=== PATIENT | female | born 1950 | race Caucasian/White ===

== ENCOUNTER 2016-07-24 10:33 | Emergency (ER) | payer OTHER ==
[~2016-07-24 10:33] MED LIST: ASPIRIN81 M4 PO; FENOFIBRATE48 M1 PO; FUROSEMIDE40 M1 PO; KEFLEX500 MG PO; LISINOPRIL40 M1 PO; LOVASTATIN40 M1 PO; LYRICA50 M1 PO; METFORMIN HCL1000 M1 PO; SERTRALINE HCL50 MG PO
[2016-07-24 10:43] VITALS: BP 142/77
--- NOTE | 2016-07-24 11:51 | ED UPPER/LOWER EXTREMITY COMPL ---
History of Present Illness General Chief Complaint: Lower Extremity Problems Stated Complaint: RT LEG BLD BLISTER STATED BY PT Source: patient, old records Exam Limitations: no limitations Vital Signs & Intake/Output Vital Signs & Intake/Output Vital Signs Date Time Temp Pulse Resp B/P B/P Pulse O2 O2 Flow FiO2 Mean Ox Delivery Rate 07/24 1130 Room Air 07/24 1043 97.8 89 16 142/77 96 Room Air Allergies Coded Allergies: Penicillins (HIVES 12/02/15) vancomycin (FEVER 12/02/15) Reconcile Medications Aspirin (Aspirin*) 81 MG TAB.CHEW 1 TAB PO DAILY HEART HEALTH (Reported) Cephalexin (Keflex) 500 MG CAP 1 TAB PO 4 TIMES/DAY TOE INFECTION Fenofibrate Nanocrystallized (Fenofibrate) 48 MG TABLET 1 TAB PO DAILY CHOLESTEROL (Reported) Furosemide 40 MG TABLET 1 TAB PO EOD WATER PILL (Reported) Lisinopril 40 MG TABLET 1 TAB PO DAILY HEART (Reported) Lovastatin 40 MG TABLET 1 TAB PO DAILY CHOLESTEROL (Reported) with food Metformin HCl 1,000 MG TABLET 1 TAB PO BID DIABETES (Reported) Pregabalin (Lyrica) 50 MG CAPSULE 1 CAP PO TID PAIN (Reported) Sertraline HCl 50 MG TABLET 1 TAB PO DAILY MENTAL HEALTH (Reported) Triage Note: PT TO ED, STATES SHE HAD A VASCULAR PROCEDURE TO HER RIGHT LEG X1 MONTH AGO BY DR ALCAZAR. STATES AREA STARTED TO DOUBLE IN SIZE PAST X2 DAYS. Triage Nurses Notes Reviewed? yes HPI: 65F PMH HTN, RECENT VARICOSE VEIN ABLATION 1 MONTH AGO PRESENTING WITH RIGHT LATERAL MARK ECCHYMOSIS. PATIENT HAS WHAT APPEARS TO BE A CHRONIC ULCER WITH COAGULATED BLOOD APPROXIMATELY 2CM WIDE. THERE IS NO TENDERNESS, PAIN, DISCHARGE. DENIES FEVER, CHILLS, LEG SWELLING, CHEST PAIN, SOB. Past History Travel History Traveled to [place] past [place] day No Medical History Any Pertinent Medical History? see below for history Neurological: NEUROPATHY EENT: SLEEP APNEA Cardiovascular: hypertension Musculoskeletal: BTK AMPUTATION L Endocrine: diabetes Surgical History Surgical History: bka left Psychosocial History What is your primary language Albanian Tobacco Use: Never used Family History Hx Contributory? No Review of Systems Review of Systems Constitutional: Reports: no symptoms. EENTM: Reports: no symptoms. Respiratory: Reports: no symptoms. Cardiovascular: Reports: no symptoms. Gastrointestinal/Abdominal: Reports: no symptoms. Genitourinary: Reports: no symptoms. Musculoskeletal: Reports: no symptoms. Skin: Reports: see HPI. Neurological/Psychological: Reports: no symptoms. Hematologic/Endocrine: Reports: no symptoms. Immunological: Reports: no symptoms. All Other Systems: Reviewed and Negative Physical Exam Physical Exam General Appearance: well developed/nourished, no apparent distress, alert Head: atraumatic, normal appearance Ears, Nose, Throat: normal pharynx, normal ENT inspection Neck: normal inspection, supple Cardiovascular/Respiratory: normal breath sounds, normal peripheral pulses, regular rate/rhythm Back: normal inspection, normal range of motion Leg Right: ecchymosis Skin: normal color, warm/dry, ecchymosis Progress Differential Diagnosis: arterial insufficiency, cellulitis, CHF, compartment syndrome, contusion, dislocation, DVT, fracture, gout, septic arthritis, sprain, tendon injury Plan of Care: Microbiology 07/24 1209 BLOOD: Blood Culture - CAN Cancelled: Cancelled via OE: Per MD Decision PATIENT WITH STABLE ULCER WITH NO ACTIVE BLEEDING, PAIN, OR DISCHARGE. CAN FOLLOW UP WITH VASCULAR SURGEON AND WOUND CARE THIS WEEK. NO IMAGING NECESSARY. PATIENT IS LOW PROBABILITY FOR VTE, WELLS SCORE 0. NO ACTIVE INFECTION NOTED. WILL BE DISCHARGED HOME. (HERMANN PIMENTEL,MAGI) Departure Departure Time of Disposition: 1149 Disposition: HOME OR SELF CARE Condition: Stable Clinical Impression Primary Impression: Wound of right lower extremity Referrals: RYANNE PIMENTEL,BIJAL Cotton (PCP/Family) Additional Instructions: FOLLOW UP WITH DR ALCAZAR SCHEDULED ON Tuesday07/29/16 Departure Forms: Customer Survey General Discharge Information
[2016-07-25] MEDS ORDERED: BACITRACIN28.4 GM TOP ×2 (14:05→14:17)
[2016-07-25] MEDS ORDERED: HUMALOG100 UNIT/2 (14:14)
[2016-07-25] MEDS ORDERED: SODIUM CHLORIDE50 M1 TP (14:17)
== END 2016-07-24 11:50 ==
LOC: ERH 10:33
DX: S81.801A Unspecified open wound, right lower leg, initial encounter (principal)
CPT/HCPCS: 87040

== ENCOUNTER 2017-05-15 23:31 | Emergency (ER) | payer OTHER, MEDICARE ==
[~2017-05-15] VITALS: Ht 152.4 cm; Wt 124.7 kg
[~2017-05-15 23:31] MED LIST changes: +BACITRACIN28.4 GM TOP; +HUMALOG100 UNIT/2; +SODIUM CHLORIDE50 M1 TP
--- NOTE | 2017-05-15 23:41 | ED GI/GU/ABDOMINAL COMPLAINT ---
History of Present Illness General Chief Complaint: Female Urogenital Problems Stated Complaint: FEMALE PROBLEMS PER PT Source: patient Exam Limitations: no limitations Vital Signs & Intake/Output Vital Signs & Intake/Output Vital Signs Date Time Temp Pulse Resp B/P B/P Pulse O2 O2 Flow FiO2 Mean Ox Delivery Rate 05/16 0139 97.9 78 18 147/68 97 Room Air 05/15 2338 97.9 87 18 162/78 97 Room Air ED Intake and Output 05/16 0000 05/15 1200 Intake Total Output Total Balance Patient 275 lb Weight Weight Reported by Patient Measurement Method Allergies Coded Allergies: Penicillins (HIVES 12/02/15) vancomycin (FEVER 12/02/15) Reconcile Medications Aspirin (Aspirin*) 81 MG TAB.CHEW 1 TAB PO DAILY HEART HEALTH (Reported) Bacitracin 500 UNIT/GRAM OINT...G. 1 FEMI TOP BID SKIN WOUND apply to affected area(s). Fenofibrate Nanocrystallized (Fenofibrate) 48 MG TABLET 1 TAB PO DAILY CHOLESTEROL (Reported) Furosemide 40 MG TABLET 1 TAB PO EOD WATER PILL (Reported) Insulin Lispro (Humalog) 100 UNIT/ML VIAL (Unknown Dose) DIABETES (Reported) Lisinopril 40 MG TABLET 1 TAB PO DAILY HEART (Reported) Lovastatin 40 MG TABLET 1 TAB PO DAILY CHOLESTEROL (Reported) with food Metformin HCl 1,000 MG TABLET 1 TAB PO BID DIABETES (Reported) Normal Saline (Sodium Chloride) 0.9 % IV.SOLN 1,000 ML TP BID WOUND CLEANING Pregabalin (Lyrica) 50 MG CAPSULE 1 CAP PO TID PAIN (Reported) Sertraline HCl 50 MG TABLET 1 TAB PO DAILY MENTAL HEALTH (Reported) Sulfamethoxazole/Trimethoprim (Bactrim Ds Tablet) 800 MG-160 MG TABLET 1 TAB PO BID uti Triage Note: PT TO ER C/C RLQ PAIN X 4 DAYS. SAW PCP ON TUESDAY HAD NEGATIVE UA. PT W/ HX OF TYPE 1 DM. STATES GLUCOSE HAS BEEN ELEVATED. DENIES N/V/D. STATES PAIN IS PRESSURE. Triage Nurses Notes Reviewed? yes ? n Is pt currently ? No Onset: Gradual Duration: day(s): Timing: recent history Quality/Severity: sharpness Location: right lower quadrant Radiation: no radiation Activities at Onset: none Modifying Factors: Worsens With: palpation. Associated Symptoms: abdominal pain, dysuria HPI: 66 yo woman h/o diabetes, on insulin, presents with right lower quadrant and suprapubic abdominal discomfort for the past 4-5 days. She notes dysuria, went to a clinic, had a negative u/a. She notes no fever, chills, nausea, vomiting, diarrhea, vaginal discharge. She is otherwise well. Past History Travel History Traveled to [place] past 21 day No Medical History Any Pertinent Medical History? see below for history Neurological: NEUROPATHY EENT: SLEEP APNEA Cardiovascular: hypertension Musculoskeletal: BTK AMPUTATION L Endocrine: diabetes Surgical History Surgical History: bka left Psychosocial History What is your primary language Yi Tobacco Use: Never used Family History Hx Contributory? No Review of Systems Review of Systems Constitutional: Reports: no symptoms. EENTM: Reports: no symptoms. Respiratory: Reports: no symptoms. Cardiovascular: Reports: no symptoms. GI: Reports: no symptoms. Genitourinary: Reports: no symptoms. Musculoskeletal: Reports: no symptoms. Skin: Reports: no symptoms. Neurological/Psychological: Reports: no symptoms. Hematologic/Endocrine: Reports: no symptoms. Immunologic/Allergic: Reports: no symptoms. All Other Systems: Reviewed and Negative Physical Exam Physical Exam General Appearance: well developed/nourished, mild distress Head: atraumatic, normal appearance Eyes: Bilateral: normal appearance. Ears, Nose, Throat, Mouth: hearing grossly normal, moist mucous membrane Neck: normal inspection, supple, full range of motion Respiratory: normal breath sounds, chest non-tender, no respiratory distress, quiet respiration, lungs clear Cardiovascular: regular rate/rhythm Gastrointestinal: normal bowel sounds, soft, mild rlq tenderness and suprapubic tenderness to palpation. Back: normal inspection Extremities: normal range of motion Neurologic/Psych: no motor/sensory deficits, awake, alert, oriented x 3 Skin: intact, normal color, warm/dry Core Measures ACS in differential dx? No Sepsis Present: No Sepsis Focused Exam Completed? No Progress Differential Diagnosis: UTI/pyelo, appy vs other. Plan of Care: Orders Procedure Date/time Status URINALYSIS 05/15 2340 Complete LIPASE 05/15 234 Complete HEPATIC FUNCTION PANEL 05/15 2340 Complete CBC WITHOUT DIFFERENTIAL 05/15 2340 Complete BASIC METABOLIC PANEL 05/15 234 Complete AMYLASE 05/15 234 Complete EKG 05/15 2340 Active Current Medications Sig/Yuriy Start time Last Medication Dose Stop Time Status Admin Ketorolac 60 MG ONCE ONE 05/16 44 CAN Tromethamine 05/16 45 (Toradol) Laboratory Tests 05/16/17 0034: Anion Gap 12, Estimated GFR > 60, BUN/Creatinine Ratio 36.7 H, Glucose 188 H, Calcium 9.9, Total Bilirubin 0.5, Direct Bilirubin 0.4, AST 13 L, ALT 24, Alkaline Phosphatase 88, Total Protein 7.2, Albumin 4.1, Amylase < 30 L, Lipase 104 05/16/17 0022: Urinalysis LIGHT H, Urine Color YEL, Urine Clarity HAZY H, Urine pH 6.0, Ur Specific [place] >= 1.030, Urine Protein 100 H, Urine Ketones NEG, Urine Nitrite NEG, Urine Bilirubin NEG, Urine Urobilinogen 0.2, Ur Leukocyte Esterase NEG, Ur Microscopic SEDIMENT EXAMINED, Urine RBC 15-25 H, Urine WBC 1-3 H, Ur Epithelial Cells MOD H, Urine Bacteria FEW H, Urine Mucus FEW, Urine Hemoglobin MOD H, Urine Glucose NEG 05/16/17 0002: CBC w Diff NO MAN DIFF REQ, RBC 4.47, MCV 84.7, MCH 28.4, MCHC 33.5, RDW 13.4, MPV 9.2, Gran % 75.5 H, Lymphocytes % 18.6 L, Monocytes % 4.3, Eosinophils % 1.5, Basophils % 0.1, Absolute Granulocytes 8.7 H, Absolute Lymphocytes 2.1, Absolute Monocytes 0.5, Absolute Eosinophils 0.2, Absolute Basophils 0 Diagnostic Imaging: Viewed by Me: CT Scan. Discussed w/RAD: CT Scan. Radiology Impression: PATIENT: ELIZABETH ETIENNE PRESENT AGE: 66 PATIENT ACCOUNT NO: [id number] : 51 LOCATION: [facility] ORDERING PHYSICIAN: Domenico Austin MD SERVICE DATE: 05/16/17 EXAM TYPE: CAT - CT ABD & PELVIS W/O IV CONTRAS EXAMINATION: CT ABDOMEN AND PELVIS WITHOUT CONTRAST CLINICAL INFORMATION: Right lower quadrant pain COMPARISON: None TECHNIQUE: Multidetector volumetric imaging was performed from the superior aspect of the liver through the pubic symphysis. Sagittal and coronal reformatted images were obtained on the technologist's workstation. DLP: 1379 mGy-cm FINDINGS: LUNG BASES: The visualized lung bases are unremarkable. LIVER, GALLBLADDER, AND BILIARY TREE: The liver is normal in size, shape, and attenuation. No focal hepatic lesion or biliary ductal dilatation is present. There is a peripherally calcified 2.4 cm stone in the gallbladder fundus. No gallbladder wall thickening or pericholecystic fluid. PANCREAS: Unremarkable. SPLEEN: Unremarkable. ADRENAL GLANDS: Unremarkable. KIDNEYS AND URETERS: The kidneys are normal in size, shape, and attenuation. There is mild asymmetric right perinephric stranding. Mild prominence of the right ureter without hydronephrosis. No renal or ureteral calculi are seen. BLADDER: Decompressed. No bladder calculi. GASTROINTESTINAL TRACT: The stomach is unremarkable. The small bowel is normal in caliber. No obstruction. Normal appendix. No colonic wall thickening or inflammatory change. Mild colonic stool burden. No free air or free fluid. ABDOMINAL WALL: No significant hernia is appreciated. LYMPH NODES: Normal. VASCULAR: Normal caliber aorta with mild atherosclerotic calcifications. PELVIC VISCERA: Uterus is not seen. No adnexal mass. Mild stranding noted in the pelvis. OSSEOUS STRUCTURES: No acute or suspicious osseous abnormality. Mild degenerative changes of both hips. Cortical thickening with increased trabeculation noted at the right hemipelvis. Degenerative changes of the spine. IMPRESSION: 1. Asymmetric right perinephric stranding with mild prominence of the right ureter. No significant hydronephrosis at this time. No renal, ureteral , or bladder calculi are seen. The appearance could be associated with a recently passed stone, although infectious process not excluded. 2. Cholelithiasis. 3. Findings suggestive of Paget's disease in the right pelvis. DICTATED BY: Ismael Schafer MD DATE/TIME DICTATED:05/16/1737 TEACHER OF THE DEAF/HARD OF HEARING:LAVONNE DATE/TIME TRANSCRIBED:05/16/1737 CONFIDENTIAL, DO NOT COPY WITHOUT APPROPRIATE AUTHORIZATION. <Electronically signed in Other Vendor System> SIGNED BY: Ismael Schafer MD 05/16/1747 Initial ED EKG: sinus, poor r wave progression, no acute changes. Departure Departure Disposition: HOME OR SELF CARE Condition: Stable Clinical Impression Primary Impression: Abdominal pain Secondary Impressions: Renal colic on right side Referrals: Sallie PIMENTEL,Connie Cotton (PCP/Family) Departure Forms: Customer Survey General Discharge Information Prescriptions: Current Visit Scripts Sulfamethoxazole/Trimethoprim (Bactrim Ds Tablet) 1 TAB PO BID #20 TAB Comments symptoms and exam suggest having passed a kidney stone... pt feeling better in ED.... perinephric stranding concerning for uti/pyelo... will treat with abx... pt feels well and would like to go home...pt safe for discharge and will follow up with pmd and urology.
[2017-05-16 00:12] LABS: ABSOLUTE BASOPHIL COUNT 0 /CUMM (0.0-0.2); ABSOLUTE EOSINOPHIL COUNT 0.2 /CUMM (0.0-0.7); ABSOLUTE GRANULOCYTE CT 8.7 /CUMM (1.4-6.5); ABSOLUTE LYMPH COUNT 2.1 /CUMM (1.2-3.4); ABSOLUTE MONOCYTE COUNT 0.5 /CUMM (0.10-0.60); BASOPHIL % 0.1 % (0.0-2.0); EOSINOPHIL % 1.5 % (0-5); GRANULOCYTE % 75.5 % (42.2-75.2); HEMATOCRIT 37.8 % (37-47); MEAN CORPUSCULAR HGB 28.4 PG (27.0-31.0); MEAN CORPUSCULAR HGB CONC 33.5 G/DL (33.0-37.0); MEAN CORPUSCULAR VOLUME 84.7 FL (81.0-99.0); MEAN PLATELET VOLUME 9.2 FL (7.4-10.4); PLATELET COUNT 224 /CUMM (130-400); RBC DISTRIBUTION WIDTH 13.4 % (11.5-14.5); RED BLOOD CELL CT 4.47 /CUMM (4.20-5.40); WHITE BLOOD CELL COUNT 11.5 /CUMM (4.8-10.8)
--- NOTE | 2017-05-16 00:48 | CT SCAN REPORT ---
EXAMINATION: CT ABDOMEN AND PELVIS WITHOUT CONTRAST CLINICAL INFORMATION: Right lower quadrant pain COMPARISON: None TECHNIQUE: Multidetector volumetric imaging was performed from the superior aspect of the liver through the pubic symphysis. Sagittal and coronal reformatted images were obtained on the technologist's workstation. DLP: 1379 mGy-cm FINDINGS: LUNG BASES: The visualized lung bases are unremarkable. LIVER, GALLBLADDER, AND BILIARY TREE: The liver is normal in size, shape, and attenuation. No focal hepatic lesion or biliary ductal dilatation is present. There is a peripherally calcified 2.4 cm stone in the gallbladder fundus. No gallbladder wall thickening or pericholecystic fluid. PANCREAS: Unremarkable. SPLEEN: Unremarkable. ADRENAL GLANDS: Unremarkable. KIDNEYS AND URETERS: The kidneys are normal in size, shape, and attenuation. There is mild asymmetric right perinephric stranding. Mild prominence of the right ureter without hydronephrosis. No renal or ureteral calculi are seen. BLADDER: Decompressed. No bladder calculi. GASTROINTESTINAL TRACT: The stomach is unremarkable. The small bowel is normal in caliber. No obstruction. Normal appendix. No colonic wall thickening or inflammatory change. Mild colonic stool burden. No free air or free fluid. ABDOMINAL WALL: No significant hernia is appreciated. LYMPH NODES: Normal. VASCULAR: Normal caliber aorta with mild atherosclerotic calcifications. PELVIC VISCERA: Uterus is not seen. No adnexal mass. Mild stranding noted in the pelvis. OSSEOUS STRUCTURES: No acute or suspicious osseous abnormality. Mild degenerative changes of both hips. Cortical thickening with increased trabeculation noted at the right hemipelvis. Degenerative changes of the spine. IMPRESSION: 1. Asymmetric right perinephric stranding with mild prominence of the right ureter. No significant hydronephrosis at this time. No renal, ureteral, or bladder calculi are seen. The appearance could be associated with a recently passed stone, although infectious process not excluded. 2. Cholelithiasis. 3. Findings suggestive of Paget's disease in the right pelvis.
[2017-05-16] MEDS ORDERED: BACTRIM DS TAB1 EACH PO (01:18)
[2017-05-16 01:39] VITALS: BP 147/68
== END 2017-05-16 01:45 ==
LOC: ERH 23:31
PROVIDERS: Pediatrics
DX: N23 Unspecified renal colic (principal)
CPT/HCPCS: 74176; 81001; 93005; 93010; 96374; 96375; J0696; J1885